=== PATIENT | female | born 1930 | race Caucasian/White ===

== ENCOUNTER 2019-12-04 12:47 | Emergency (ER) | payer BC ==
[2019-12-04 13:07] VITALS: BMI 41.5
--- OUTSIDE RECORDS SUMMARY | 2019-12-04 13:14 | XMS ---
:1930 Author Organization [facility] Care Team Providers Name Role Phone Bryson Bolton MD Unavailable Unavailable Bryson Bloton MD Unavailable Unavailable Bryson Bolton MD Unavailable Unavailable Bryson Bolton MD Unavailable Unavailable Bryson Bolton MD Unavailable Unavailable Bryson Bolton MD Unavailable Unavailable Bryson Bolton MD Unavailable Unavailable Bryson Bolton MD Unavailable Unavailable Kimberly Candelario MD Unavailable Kimberly Candelario MD Unavailable Kimberly Candelario MD Unavailable Kimberly Candelario MD Unavailable Kimberly Candelario MD Unavailable Kimberly Candelario MD Unavailable Kimberly Candelario MD Unavailable Kimberly Candelario MD Unavailable Kimberly Candelario MD Unavailable Kimberly Candelario MD Unavailable Kimberly Candelario MD Unavailable Kimberly Candelario MD Unavailable Kimberly Candelario MD Unavailable Kimberly Candelario MD Unavailable Kimberly Candelario MD Unavailable Re-disclosure Warning The records that you are about to access may contain information from federally- assisted alcohol or drug abuse programs. If such information is present, then the following federally mandated warning applies: This information has been disclosed to you from records protected by federal confidentiality rules (42 CFR part 2). The federal rules prohibit you from making any further disclosure of this information unless further disclosure is expressly permitted by the written consent of the person to whom it pertains or as otherwise permitted by 42 CFR part 2. A general authorization for the release of medical or other information is NOT sufficient for this purpose. The Federal rules restrict any use of the information to criminally investigate or prosecute any alcohol or drug abuse patient.The records that you are about to access may contain highly sensitive health information, the redisclosure of which is protected by Article 27-F of the [facility] Public Health law. If you continue you may haveaccess to information: Regarding HIV / AIDS; Provided by facilities licensed or operated by the [facility] Office of Mental Health; or Provided by the [facility] Office for People With Developmental Disabilities. If such information is present, then the following [facility] mandated warning applies: This information has been disclosed to you from confidential records which are protected by state law. State law prohibits you from making any further disclosure of this information without the specific written consent of the person to whom it pertains, or as otherwise permitted by law. Any unauthorized further disclosure in violation of state law may result in a fine or prison sentence or both. A general authorization for the release of medical or other information is NOT sufficient authorization for further disclosure. Allergies and Adverse Reactions Type Description Substance Reaction Status Data Source(s ) Drug allergy Penicillins Penicillins [facility] Encounters Encounter Providers Location Date Indications Data Source(s ) Outpatient Attender: Kimberly Stephen 05/04/2019 [facility] MDAdmitter: 09:03:00 AM [facility] Kimberyl CAMARGO MDReferrer: Kimberly Candelario MD Outpatient Attender: Bryson Stephen 07/07/2018 [facility] Bolton MDAdmitter: 10:09:00 AM [facility] Bryson Bolton EDT MDReferrer: Bryson Bolton MD 07/07/2018 [facility] ([facility] 10:09:00 AM [facility] EDT - Center) 07/07/2018 10:09:00 AM EDT Outpatient 07/07/2018 [facility] 12:00:00 [facility] Outpatient Attender: Kimberly Zafar 07/02/2018 [facility] MDAdmitter: 09:27:00 AM [facility] Kimberly Candelario EDT MDReferrer: Kimberly Candelario MD Insurance Providers Payer name Policy type Policy ID Covered Covered green party's Policy P taty / Coverage green party ID relationship to Nix Inf ormation type nix BLUE CROSS [id number] SP [id number] SENIOR PLAN O MEDIBLUE OP O [id number] 01 [id number] MEDIB[place] OP [id number] self [place] Problems, Conditions, and Diagnoses Code Display Name Description Problem Type Effective Data Sour ce(s) Dates Z12.31 Encounter for ENCNTR SCREEN Diagnosis 05/04/2019 [facility] screening MAMMOGRAM FOR 09:03:00 AM [facility] Ce [facility]ter mammogram for MALIGNANT NEOPLASM EST malignant neoplasm OF BREAST of breast M81.0 Age-related AGE-RELATED Diagnosis 05/04/2019 [facility]illips osteoporosis OSTEOPOROSIS W/O 09:03:00 AM [facility] without current CURRENT EST pathological PATHOLOGICAL fracture FRACTURE J44.9 Chronic CHRONIC Diagnosis 05/04/2019 [facility] obstructive OBSTRUCTIVE 09:03:[address] pulmonary disease, PULMONARY DISEASE, EST unspecified UNSPECIFIED R91.8 Other nonspecific OTHER NONSPECIFIC Diagnosis 05/04/2019 [facility] abnormal finding ABNORMAL FINDING 09:03:00 AM [facility] of lung field OF LUNG FIELD EST Z01.818 Encounter for ENCOUNTER FOR Diagnosis 07/07/2018 [facility] other OTHER 10:09:00 AM [facility] mancini preprocedural PREPROCEDURAL EDT examination EXAMINATION Z87.891 Personal history PERSONAL HISTORY Diagnosis 07/07/2018 [facility] of 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
--- NOTE | 2019-12-04 13:44 | PDOC ---
History of Present Illness - General Chief Complaint: Pain, Acute Stated Complaint: ABDOMINAL PAIN Time Seen by Provider: 12/04/19 13:32 History Source: Patient, Spouse - History of Present Illness Initial Comments: 12/04/19 13:44 89F w/hx DM, HTN, HLD, spinal stenosis with implanted morphine pump, chronic constipation p/w two days of abdominal pain, nausea, vomiting. She reports acute onset diffuse abdominal pain worse in the RUQ starting yesterday. She reports 7/10 abdominal pain. She is not ambulatory at baseline due to pain from spinal stenosis. She reports passing flatus but no stool since symptom onset. She denies any fevers, chills, weakness, confusion. No abdominal surgical hx. Past History - Medical History Allergies/Adverse Reactions: Allergies Allergy/AdvReac Type Severity Reaction Status Date / Time Penicillins Allergy Severe Hives Verified 12/04/19 13:05 Home Medications: Ambulatory Orders clonazePAM [KlonoPIN] 1 mg PO DAILY 10/18/14 Atorvastatin Ca [Lipitor] 80 mg PO HS 12/04/19 Duloxetine HCl [Cymbalta -] 20 mg PO DAILY 12/04/19 Empagliflozin [Jardiance] 10 mg PO DAILY 12/04/19 Insulin Glargine,Hum.rec.anlog [Lantus] 20 unit SQ DAILY 12/04/19 Levothyroxine [Synthroid -] 88 mcg PO DAILY 12/04/19 Lisinopril [Prinivil] 10 mg PO DAILY 12/04/19 Metoprolol Succinate 25 mg PO DAILY 12/04/19 Oxycodone HCl/Acetaminophen [Percocet 10-325 mg Tablet] 1 each PO PRN 12/04/19 Rivaroxaban [Xarelto] 20 mg PO DAILY 12/04/19 Zolpidem Tartrate [Ambien] 10 mg PO HS 12/04/19 Anemia: No Asthma: Yes Cardiac Disorders: No CVA: No COPD: No CHF: No Dementia: No Diabetes: Yes (IDDM) GI Disorders: Yes (GERD) Disorders: No HTN: Yes Hypercholesterolemia: Yes Liver Disease: No Seizures: No Thyroid Disease: Yes (HYPOTHYROIDISM) - Surgical History Abdominal Surgery: Yes (GRAFT S/P INFECTION) Appendectomy: No Cardiac Surgery: No Cholecystectomy: No Lung Surgery: No Neurologic Surgery: No Orthopedic Surgery: Yes (ORIF RIGHT ARM) - Immunization History Immunization Up to Date: Yes - Psycho-Social/Smoking History Smoking Status: Yes Smoking History: Never smoked Have you smoked in the past 12 months: Yes Number of Cigarettes Smoked Daily: 20 'Breaking Loose' booklet given: 10/18/14 - Substance Abuse Hx (Audit-C & DAST Scrn) How often the patient has a drink containing alcohol: Never Score: In Men: 4 or > Positive; In Women: 3 or > Positive: 0 Screen Result (Pos requires Nsg. Audit-10AR): Negative In the last yr the pt used illegal drug/Rx for NonMed reason: No Score: Yes response is considered Positive: 0 Screen Result (Positive result requires Nsg. DAST-10): Negative *Physical Exam - Vital Signs Last Vital Signs Temp Pulse Resp BP Pulse Ox 97.9 F 80 20 195/89 H 100 12/04/19 13:05 12/04/19 13:05 12/04/19 13:05 12/04/19 13:05 12/04/19 13:05 ED Treatment Course - LABORATORY CBC & Chemistry Diagram: 12/04/19 14:20 12/04/19 14:20 Discharge - Follow up/Referral Referrals: Kimberly Candelario [Primary Care Provider] - - Patient Discharge Instructions - Post Discharge Activity
[2019-12-04] MEDS ORDERED: FAMOTIDINE 20 MG/50 ML IVPB 20 MG/50 ML MG IVPB ONE ×2 (13:51→14:11)
[2019-12-04] MEDS ORDERED: MAG HYDROX/AL HYDROX/SIMETH 30 ML UNIT-DOSE CUP PO ONE (13:51)
[2019-12-04] MEDS ORDERED: LACTATED RINGERS SOLUTION 1000 ML INFUS.BAG IV ONE ×2 (13:51→19:08)
[2019-12-04] MEDS ORDERED: ACETAMINOPHEN 1000 MG/100 ML VIAL (NON FORMULARY) IVPB ONE (13:53)
[2019-12-04] MEDS ORDERED: MAG HYDROX/AL HYDROX/SIMETH 30 ML UNIT-DOSE CUP ONE (14:11)
[2019-12-04] MEDS ORDERED: ACETAMINOPHEN INJECTION 100 ML IVPB ONE (14:11)
[2019-12-04] MEDS ORDERED: ONDANSETRON 4 MG/2 ML VIAL IVPUSH ONE (14:14)
[2019-12-04] MEDS ORDERED: morphine CARPU-JECT 4 MG/1 ML DISP.SYRIN IVPUSH ONE (14:15)
[2019-12-04] MEDS ORDERED: MORPHINE SULFATE 2 MG/ML VIAL ONE (14:29)
--- NOTE | 2019-12-04 14:59 | PDOC ---
Documentation entered by Jose Rodríguez SCRIBE, acting as scribe for Samantha Caldera MD. Samantha Caldera MD: This documentation has been prepared by the Anne isbell Aaron, SCRIBE, under my direction and personally reviewed by me in its entirety. I confirm that the documentation accurately reflects all work, treatment, procedures, and medical decision making performed by me. Attending Attestation - Resident Resident Name: Christopher Stone - ED Attending Attestation I have performed the following: I have examined & evaluated the patient, The case was reviewed & discussed with the resident, I agree w/resident's findings & plan, Exceptions are as noted - HPI HPI: 12/04/19 14:25 The patient is an 89 year old female with a significant PMH of IDDM, HTN, Hypothyroidism, GERD, and HLD who presents to the emergency department [facility] for 2 days of abdominal pain, nausea, and vomiting. Patient reports that the abdominal pain is worse in RUQ. Patient also reports that her LBM was 2 days ago and endorses constipation. Patient denies diarrhea, fever, and chest pain. Patient denies any other symptoms. Allergies: penicillin Past surgical history: Spinal fusion and morphine pump, ORIF R arm, abdominal graft s/p infection Social Hx: Everyday smoker PCP: Kimberly Lewis MD ([id number]) - Physicial Exam PE: 12/04/19 14:56 General: uncomfortable but non-toxic appearing Abdomen: obese limiting exam, soft, diffuse ttp but maximally tender RUQ and epigastrium, no rebound, no guarding - Medical Decision Making 12/04/19 14:57 89 yo F with abdominal pain a/w n/v, last BM prior to onset of pain but still passing flatus and patient with h/o constipation, possible acute choley vs. gastritis vs. pancreatitis vs. obstruction vs. enteritis vs. colitis. Much lower suspicion for diverticulitis, appy or UTI (maximal tenderness upper quadrants and no urinary complaints). Plan: -labs -urine -cxr -RUQ sono -pain control as needed -zofran -reassess This clinical encounter is taking place during a federal and state health care emergency attributable to the novel Sin Virus pandemic. The Religious Assistant of the Department of Health and Human Services has declared, pursuant to the Public Health Service Act 319F-3 (42 U.S.C. 247d-6d), that a covered persons activities related to medical countermeasures against COVID-19 will be immune from liability under Federal and State law. LLOYD pelaez with stones but no other evidence of acute choley. Will get CT a/p. Pt. signed out to incoming night team. Heart Score/ECG Review - ECG Impressions Comment:: 12/04/19 14:59 sinus, rate [address] elevations or depressions Discharge - Discharge Information Problems reviewed: Yes Clinical Impression/Diagnosis: Abdominal pain Qualifiers: Abdominal location: generalized Qualified Code(s): R10.84 - Generalized abdominal pain Condition: Improved Disposition: HOME - Follow up/Referral Referrals: Kimberly Candelario [Primary Care Provider] - - Patient Discharge Instructions - Post Discharge Activity
[2019-12-04 16:16] LABS: BASO % 0.4 % (0-2.0); HEMATOCRIT 52.6 % (32.4-45.2); HEMOGLOBIN 17.6 GM/dL (10.7-15.3); LYMPH % 18.4 % (8-40); MCH 30.7 pg (25.7-33.7); MCHC 33.4 g/dl (32.0-36.0); MEAN PLT VOLUME 8.7 fl (7.5-11.1); MONO % 5.8 % (3.8-10.2); NEUT % 74.4 % (42.8-82.8); PLATELET COUNT 314 K/MM3 (134-434); RBC 5.72 M/mm3 (3.60-5.2); WHITE BLOOD COUNT 9.7 K/mm3 (4.0-10.0)
[2019-12-04 16:23] LABS: INR 1.02 (0.83-1.09)
[2019-12-04 16:26] LABS: ACTIVATED PTT 32.6 SECONDS (25.2-36.5)
[2019-12-04 16:43] LABS: ALBUMIN 3.7 g/dl (3.4-5.0); ALK PHOS 112 U/L (45-117); ANION GAP 8 MMOL/L (8-16); BILIRUBIN,TOTAL 1.5 mg/dL (0.2-1); BLOOD UREA NITROGEN 12.1 mg/dL (7-18); CALCIUM 9.8 mg/dL (8.5-10.1); CHLORIDE 98 mmol/L (98-107); CO2 32 mmol/L (21-32); CREATININE 0.9 mg/dL (0.55-1.3); GLUCOSE,RANDOM 189 mg/dL (74-106); LIPASE 59 U/L (73-393); POTASSIUM 4.2 mmol/L (3.5-5.1); SGOT/AST 26 U/L (15-37); SGPT/ALT 18 U/L (13-61); SODIUM 138 mmol/L (136-145); TOT PROT 7.9 g/dl (6.4-8.2)
[2019-12-04 16:59] VITALS: TEMP 97
[2019-12-04 17:57] VITALS: BP 174/74; PULSE 88
--- NOTE | 2019-12-04 19:53 | PDOC ---
*Physical Exam - Vital Signs Last Vital Signs Temp Pulse Resp BP Pulse Ox 97.0 F L 88 20 174/74 H 96 12/04/19 16:58 12/04/19 17:56 12/04/19 17:56 12/04/19 17:56 12/04/19 17:17 ED Treatment Course - LABORATORY CBC & Chemistry Diagram: 12/04/19 14:20 12/04/19 14:20 - ADDITIONAL ORDERS Additional order review: Laboratory Results 12/04/19 12/04/19 12/04/19 14:20 14:20 14:20 PT with INR 12.00 INR 1.02 PTT (Actin FS) 32.6 Sodium 138 Potassium 4.2 Chloride 98 Carbon Dioxide 32 Anion Gap 8 BUN 12.1 Creatinine 0.9 Est GFR (CKD-EPI)AfAm 66.63 Est GFR (CKD-EPI)NonAf 57.49 Random Glucose 189 H Calcium 9.8 Total Bilirubin 1.5 H AST 26 ALT 18 Alkaline Phosphatase 112 Troponin I < 0.02 Total Protein 7.9 Albumin 3.7 Lipase 59 L Blood Type O POSITIVE Antibody Screen Negative 12/04/19 14:20 RBC 5.72 H MCV 92.0 MCHC 33.4 RDW 15.0 MPV 8.7 Neutrophils % 74.4 D Lymphocytes % 18.4 D Monocytes % 5.8 Eosinophils % 1.0 Basophils % 0.4 - Medications Given in the ED: ED Medications Discontinued Medications Generic Name Dose Route Start Last Admin Trade Name Juwanq PRN Reason Stop Dose Admin Acetaminophen 1,000 mg 12/04/19 13:53 12/04/19 14:26 Ofirmev Injection - IVPB 12/04/19 13:54 1,000 mg ONCE ONE Administration Al Hydroxide/Mg Hydroxide 30 ml 12/04/19 13:51 12/04/19 14:25 Mylanta Oral Suspension - PO 12/04/19 13:52 30 ml ONCE ONE Administration Famotidine/Sodium Chloride 20 mg in 50 mls @ 100 mls/hr 12/04/19 13:51 12/04/19 14:44 Pepcid 20 Mg Premixed Ivpb - IVPB 12/04/19 14:20 100 mls/hr ONCE ONE Administration Lactated Ringer's 1,000 ml 12/04/19 13:51 12/04/19 14:25 Lactated Ringers Solution IV 12/04/19 13:52 1,000 ml ONCE ONE Administration Morphine Sulfate 4 mg 12/04/19 14:15 12/04/19 14:35 Morphine Injection - IVPUSH 12/04/19 14:16 4 mg ONCE ONE Administration Ondansetron HCl 4 mg 12/04/19 14:14 12/04/19 16:23 Zofran Injection IVPUSH 12/04/19 14:15 4 mg ONCE ONE Administration Medical Decision Making - Medical Decision Making 12/04/19 19:51 Patient Name: LAKSHMI FULTON THIS IS A PRELIMINARY REPORT DATE OF SERVICE: 2019-12-04 18:08:07 IMAGES: [id number] EXAM: ABDOMEN \T\ PELVIS CT WITH CONTR HISTORY: Abdominal pain COMPARISON: None. FINDINGS: There is dependent atelectasis at the right lung base with volume loss in the visualized right lung Coronary artery calcifications. Small hiatal hernia Cholelithiasis without gallbladder wall thickening or pericholecystic edema to suggest acute cholecystitis Enlarged fatty liver and fatty changes of the pancreas The spleen and adrenal glands are unremarkable Bilateral renal vascular calcifications. No hydronephrosis No bowel obstruction or distention. Normal appendix. Colonic diverticulosis, predominantly left colon without evidence of acute diverticulitis The pelvic organs are grossly normal No intra-abdominal free air, free fluid or loculated collections Neurostimulator generator in the soft tissues of the left abdomen with leads extending to the lower thoracic spine 12/04/19 19:59 Pt has no pain at this time. She is feeling well and she will go home with her brother. Discharge - Discharge Information Problems reviewed: Yes Clinical Impression/Diagnosis: Abdominal pain Qualifiers: Abdominal location: generalized Qualified Code(s): R10.84 - Generalized abdominal pain Condition: Improved Disposition: HOME - Follow up/Referral Referrals: Kimberly Candelario [Primary Care Provider] - - Patient Discharge Instructions - Post Discharge Activity
--- NOTE | 2019-12-05 15:10 | EKG ---
Test Reason : Blood Pressure : / mmHG Vent. Rate : 070 BPM Atrial Rate : 070 BPM P-R Int : 134 ms QRS Dur : 094 ms QT Int : 424 ms P-R-T Axes : 020 051 047 degrees QTc Int : 457 ms NORMAL SINUS RHYTHM WITH SINUS ARRHYTHMIA NORMAL ECG WHEN COMPARED WITH ECG OF 18-OCT-2014 12:30, NO SIGNIFICANT CHANGE WAS FOUND Confirmed by MD Murrell Daniel ([id number]) on 12/05/2019 3:09:45 PM Referred By: Confirmed By:Daniel Murrell MD
--- NOTE | 2019-12-07 11:41 | EKG ---
Test Reason : Blood Pressure : / mmHG Vent. Rate : 107 BPM Atrial Rate : 107 BPM P-R Int : 120 ms QRS Dur : 074 ms QT Int : 354 ms P-R-T Axes : 078 -06 013 degrees QTc Int : 472 ms SINUS TACHYCARDIA WITH PREMATURE ATRIAL COMPLEXES WITH ABERRANT CONDUCTION NONSPECIFIC ST AND T WAVE ABNORMALITY ABNORMAL ECG WHEN COMPARED WITH ECG OF 04-DEC-2019 14:51, SIGNIFICANT CHANGES HAVE OCCURRED Confirmed by Philip Vang ([id number]) on 12/07/2019 11:41:16 AM Referred By: Confirmed By:Philip Vang
== END 2019-12-04 20:12 | disposition home or self-care (01) ==
LOC: JER 12:47
PROC: 3E0333Z Introduction of Anti-inflammatory into Peripheral Vein, Percutaneous Approach (ICD-10-PCS; principal; 2019-12-04)
PROC: 3E033GC Introduction of Other Therapeutic Substance into Peripheral Vein, Percutaneous Approach (ICD-10-PCS; 2019-12-04)
DX: R10.84 Generalized abdominal pain (principal)
CPT/HCPCS: 36415; 71045-TC-FY; 74177-TC; 76705-TC; 80053; 83690; 84484; 85025; 85610; 85730; 86850; 86900; 86901; 93005; 93010; 99285-25; J0131; Q9967